=== PATIENT | female | born 1970 | race Caucasian/White ===

== ENCOUNTER → 2016-11-14 | Outpatient (REF) | payer MEDICAID ==
[2016-11-14 18:49] LABS: ALBUMIN 3.7 GM/DL (3.2-5.2); ALKALINE PHOSPHATASE 38 U/L (45-117); ALT/SGPT 16 U/L (12-78); ANION GAP 6 MEQ/L (8-16); AST/SGOT 13 U/L (15-37); BILIRUBIN,TOTAL 0.4 MG/DL (0.2-1.0); BLOOD UREA NITROGEN 23 MG/DL (7-18); CALCIUM LEVEL 8.3 MG/DL (8.5-10.1); CARBON DIOXIDE LEVEL 27 MEQ/L (21-32); CHLORIDE LEVEL 104 MEQ/L (98-107); CHOLESTEROL LEVEL 248 MG/DL (<200); CREATININE FOR GFR 0.98 MG/DL (0.55-1.02); FREE T4 0.93 NG/DL (0.76-1.46); GLOMERULAR FILTRATION RATE > 60.0 (>58); GLUCOSE, FASTING 79 MG/DL (70-105); POTASSIUM SERUM 4.5 MEQ/L (3.5-5.1); SODIUM LEVEL 137 MEQ/L (136-145); TOTAL PROTEIN 7.4 GM/DL (6.4-8.2); TRIGLYCERIDES LEVEL 101 MG/DL (<150)
[2016-11-14 19:19] LABS: BASO % 0.4 % (0.0-1.0); EOS # 0.1 K/mm3 (0.0-0.50); EOS % 1.4 % (0.0-3.0); LARGE UNSTAINED CELL # 0.1 K/mm3 (0.0-0.4); LARGE UNSTAINED CELL % 2.7 % (0.0-4.0); LYMPH # 1.6 K/mm3 (1.5-4.5); MEAN CORPUSCULAR HEMOGLOBIN 31.8 pg (27.0-33.0); MEAN CORPUSCULAR VOLUME 96.4 fl (80.0-96.0); MONO # 0.4 K/mm3 (0.0-0.8); MONO % 7.4 % (0.0-5.0); NEUTROPHILS # 2.7 K/mm3 (1.8-7.7); NEUTROPHILS % 56.2 % (36.0-66.0); PLATELET COUNT, AUTOMATED 286 k/mm3 (150-450); RED CELL DISTRIBUTION WIDTH 11.7 % (11.5-14.5); WHITE BLOOD COUNT 4.9 K/mm3 (4.0-10.0)
== END ==
LOC: M SFHCCAPE 08:19
PROVIDERS: ATTEND Physician Assistant
DX: Z13.6 Encounter for screening for cardiovascular disorders (principal); R22.1 Localized swelling, mass and lump, neck

== ENCOUNTER → 2016-11-27 | Outpatient (CLI) | payer MEDICAID ==
[~2016-11-27] MED LIST: ISOVUE-370 76% 100ML VIAL (Q9967) As Ordered ONE
--- NOTE | 2016-11-27 17:41 | REP ---
CT NECK WITH CONTRAST: HISTORY: Left neck mass. CONTRAST: Isovue-370 75 mL. Areas of decreased attenuation representing cystic structures are present in the sublingual and submandibular spaces. An ill-defined area of mild heterogenous enhancement 1.6 cm in width is present in the sublingual space anterior to hyoid bone. This contains punctate calcifications. There is no mass effect on the kimberly or hypopharynx. Calcifications are present in the tonsils. This is secondary to previous inflammatory disease. The naso-, and hypopharynx, larynx, and subglottic trachea are normal in appearance. The salivary glands are normal in density. The thyroid gland is normal in appearance. Small lymph nodes less than 1 cm in size are present in the internal jugular chains, posterior triangles, submandibular and submental areas. Minimal degenerative change is present in the cervical spine. The lung apices are clear. The visualized sinuses are clear. IMPRESSION: There are cystic structures in the sublingual and submandibular spaces with a small enhancing component. This may represent an inflammatory process, of the floor of the mouth, infected thyroglossal duct cyst, or possibly capillary lymphangioma. Signed by León Wallace MD 11/28/2016 10:18 A
== END ==
LOC: M RAD 16:21
PROVIDERS: ATTEND Physician Assistant
DX: R22.1 Localized swelling, mass and lump, neck (principal)

== ENCOUNTER → 2016-12-03 | Outpatient (REF) | payer MEDICAID | LOC: M LAB REF 16:34 | PROVIDERS: ATTEND Specialist | DX: R22.1 Localized swelling, mass and lump, neck (principal) ==

== ENCOUNTER → 2017-03-06 | Outpatient (CLI) | payer OTHER ==
--- NOTE | 2017-03-07 14:27 | REP ---
Clinical: Acute bronchitis . Comparison: None . Technique: PA and lateral. Findings: The mediastinum and cardiac silhouette are normal. The lung hinojosa are clear and without acute consolidation, effusion, or pneumothorax. The skeletal structures are intact and normal. Impression: 1. No acute cardiopulmonary process. Signed by Emanuel Bennett MD 03/06/2017 08:39 P
== END ==
LOC: M CLY 13:42
PROVIDERS: ATTEND Physician Assistant
DX: J40 Bronchitis, not specified as acute or chronic (principal)

== ENCOUNTER → 2017-06-11 | Outpatient (CLI) | payer OTHER ==
--- NOTE | 2017-06-11 12:29 | REPMRS ---
Patient History The patient states she had a clinical breast exam in 06/2017. No known family history of cancer. Retro-pectoral silicone gel implants in both breasts, April 2012. Taking hormonal contraceptives for 10 years. Digital Woman Screen Mammo: June 11, 2017 - Exam #: [id number] Bilateral CC and MLO view(s) were taken. Technologist: Adry Asif, Technologist Prior study comparison: March 28, 2016, digital woman screen mammo performed at [facility]. April 11, 2015, digital woman screen mammo performed at [facility]. FINDINGS: The breast tissue is heterogeneously dense. This may lower the sensitivity of mammography. The visualized implant margins are smooth. Breast parenchymal density pattern is essentially symmetric. No dominant mass, clustered microcalcification, or archetectural distortion is evident on either side. No significant changes when compared with prior studies. ASSESSMENT: BI-RADS/ACR category 2 mammogram. Benign finding(s). Recommendation Routine screening mammogram of both breasts in 1 year (for women over age 40). Electronically Signed By: Cheko Carlson MD 06/11/17 [id number]
== END ==
LOC: M WHC 09:08
PROVIDERS: ATTEND Nurse Practitioner Women's Health
DX: Z12.31 Encounter for screening mammogram for malignant neoplasm of breast (principal); Z92.0 Personal history of contraception; Z98.82 Breast implant status

== ENCOUNTER → 2017-06-11 | Outpatient (REF) | payer OTHER | LOC: M SFHCWAGY 09:24 | PROVIDERS: ATTEND Nurse Practitioner Women's Health | DX: Z12.4 Encounter for screening for malignant neoplasm of cervix (principal) ==

== ENCOUNTER → 2018-06-12 | Outpatient (REF) | payer OTHER ==
[2018-06-18 14:24] LABS: HPV HYBRID CAPTURE II Negative (Negative)
== END ==
LOC: M SFHCWAGY 09:46
DX: Z12.4 Encounter for screening for malignant neoplasm of cervix (principal)

== ENCOUNTER → 2018-06-12 | Outpatient (CLI) | payer OTHER | LOC: M WHC 09:11 | DX: Z12.31 Encounter for screening mammogram for malignant neoplasm of breast (principal); Z98.82 Breast implant status; Z92.0 Personal history of contraception | CPT/HCPCS: 77067 ==

== ENCOUNTER → 2019-08-31 | Outpatient (CLI) | payer OTHER, SELFPAY ==
--- NOTE | 2019-08-31 13:44 | REPMRS ---
Patient History The patient states she had a clinical breast exam in August 2019.No known family history of cancer. Retro-pectoral silicone gel implants in both breasts, April 2012. Taking hormonal contraceptives for 11 years. Digital Woman Screen Mammo: August 31, 2019 - Exam #: [id number] Bilateral CC and MLO view(s) were taken. Technologist: Carol Tariq, Technologist Prior study comparison: June 12, 2018, bilateral digital woman screen mammo performed at [facility]. June 11, 2017, digital woman screen mammo performed at [facility]. FINDINGS: There are scattered fibroglandular densities. The visualized implant margins are smooth. Breast parenchymal density pattern is essentially symmetric. No dominant mass, grouped microcalcification, or architectural distortion is evident on either side. 3-D tomosynthesis shows no additional findings. No significant changes when compared with prior studies. Assessment: BI-RADS/ACR category 2 mammogram. Benign Findings. Recommendation Routine screening mammogram of both breasts in 1 year (for women over age 40). This patient's Lifetime Breast Cancer RIsk is estimated at 8.2 %. This mammogram was interpreted with the aid of an FDA-approved computer-aided dectection system. Electronically Signed By: Maicol Cooper MD 08/31/19 [id number]
== END ==
LOC: M WHC 11:10
PROVIDERS: ATTEND Nurse Practitioner Women's Health
DX: Z12.31 Encounter for screening mammogram for malignant neoplasm of breast (principal)

== ENCOUNTER → 2019-08-31 | Outpatient (REF) | payer OTHER, SELFPAY | LOC: M SFHCWAGY 12:52 | PROVIDERS: ATTEND Nurse Practitioner Women's Health | DX: Z12.4 Encounter for screening for malignant neoplasm of cervix (principal) | CPT/HCPCS: 87624; G0123 ==

== ENCOUNTER → 2020-03-16 | Outpatient (CLI) | payer OTHER ==
--- NOTE | 2020-04-07 13:16 | REP ---
PELVIC ULTRASOUND HISTORY: Uterine fibroids. Diagnosis code N93.9. TECHNIQUE: Real-time sonographic evaluation of pelvic performed using transabdominal and endovaginal technique. FINDINGS: Bladder measures 3.7 x 3.7 x 3.3 cm for a total volume of 24 mL. Uterus measures 10.0 x 6.1 x 6.3 cm. It is diffusely heterogeneous in echotexture. Multiple fibroids are present. Largest are measured. In the left fundus, the fibroid measures 4.4 x 3.9 x 3.5 cm. In the posterior uterine body on the left, the fibroid measures 3.2 x 3.0 x 2.6 cm. Endometrial thickness is 6 mm. Right ovary measures 2.2 x 2.2 x 2.3 cm and the left ovary 2.6 x 1.8 x 2.8 cm. There is no evidence of ovarian torsion with duplex Doppler evaluation. Just lateral to the left ovary, there is an anechoic paraovarian cyst measuring 2.9 x 2.3 x 1.6 cm. There is no evidence of adnexal mass or free fluid. IMPRESSION: Fibroid uterus as discussed above. Endometrial thickness 6 mm. Correlate with patients menstrual history. Anechoic simple left paraovarian cyst measuring 2.9 x 2.3 x 1.6 cm. MTDD
== END ==
LOC: M WHC 10:56
PROVIDERS: ATTEND Nurse Practitioner Women's Health
DX: N93.9 Abnormal uterine and vaginal bleeding, unspecified (principal); D25.9 Leiomyoma of uterus, unspecified

== ENCOUNTER → 2020-09-25 | Outpatient (CLI) | payer OTHER ==
--- NOTE | 2020-09-25 16:42 | REPMRS ---
Patient History The patient states she has not had a clinical breast exam in over a year. No known family history of cancer. Retro-pectoral silicone gel implants in both breasts, April 2012. Taking hormonal contraceptives for 12 years. Digital Woman Screen Mammo: September 25, 2020 - Exam #: [id number] Bilateral CC and MLO view(s) were taken. Technologist: RT Nicole Prior study comparison: August 31, 2019, bilateral digital woman screen mammo performed at [facility]. June 12, 2018, bilateral digital woman screen mammo performed at [facility]. June 11, 2017, digital woman screen mammo performed at [facility]. FINDINGS: There are scattered fibroglandular densities. The visualized implant margins are smooth. The Volpara volumetric breast density category is: __. Breast parenchymal density pattern is essentially symmetric. No dominant mass, grouped microcalcification, or architectural distortion is evident on either side. 3-D tomosynthesis shows no additional findings. No significant changes when compared with prior studies. Assessment: BI-RADS/ACR category 2 mammogram. Benign Findings. Recommendation Routine screening mammogram of both breasts in 1 year (for women over age 40). This patient's [facility] Lifetime Breast Cancer RIsk is estimated at 8.1 %. This mammogram was interpreted with the aid of an FDA-approved computer-aided dectection system. Electronically Signed By: Maicol Cooper MD 09/25/20 [id number]
== END ==
LOC: M WHC 14:47
PROVIDERS: ATTEND Nurse Practitioner Women's Health
DX: Z12.31 Encounter for screening mammogram for malignant neoplasm of breast (principal)

== ENCOUNTER → 2021-01-31 | Outpatient (CLI) | payer OTHER ==
[2021-01-31 17:03] LABS: HEMATOCRIT 40.8 % (36.0-47.0); HEMOGLOBIN 13.2 g/dl (12.0-15.5); MEAN CORPUSCULAR HEMOGLOBIN 31.2 pg (27.0-33.0); MEAN CORPUSCULAR HGB CONC 32.4 g/dl (32.0-36.5); MEAN CORPUSCULAR VOLUME 96.5 fl (80.0-96.0); PLATELET COUNT, AUTOMATED 282 10^3/uL (150-450); RED BLOOD COUNT 4.23 10^6/uL (4.00-5.40); WHITE BLOOD COUNT 9.8 10^3/uL (4.0-10.0)
--- NOTE | 2021-01-31 23:52 | ECGEPIP ---
[facility] Test Date: 2021-01-31 Pat Name: SHOBHA FLEMING Department: Room: - Gender: Female Sort Worker: MATT : 1970 Requested By: Martínez Hussein Order Number: [id number] Reading MD: Cj Huber Measurements Intervals [place] Rate: 73 P: 49 UT: 112 QRS: -8 QRSD: 66 T: 30 QT: 388 QTc: 427 Interpretive Statements Poor data quality, interpretation may be adversely affected Normal sinus rhythm Low voltage QRS Cannot rule out Anterior infarct , age undetermined versus poor R wave p progression due to lead placement Electronically Signed on 01-31-2021 23:52:22 EDT by Cj Huber
== END ==
LOC: M LAB 15:56
PROVIDERS: ATTEND Specialist
DX: Z01.812 Encounter for preprocedural laboratory examination (principal)